=== PATIENT | female | born 1975 | race Caucasian/White ===

== ENCOUNTER → 2018-12-04 | Outpatient (CLI) | payer OTHER ==
[2015-08-06 09:55] VITALS: BP 109/72
[~2018-12-04] MED LIST: CETI10TA22 PO; MONT5TAB6 PO
--- NOTE | 2018-12-04 13:46 | RAD ---
Ultrasound-guided left thyroid biopsy, 12/04/2018: History: Thyroid nodule An outside study demonstrated a solid nodule in the anterior aspect of the upper pole of the left lobe of the gland. Under local anesthesia, aseptic conditions and sonographic guidance, 4 separate 25-gauge aspirates were obtained from this nodule via a medial approach. Hemostasis was obtained. The samples were sent to pathology for evaluation with the pathology report pending. The patient tolerated the procedure well and left the department in good condition.
--- NOTE | 2018-12-05 17:10 | PATHOLOGY ---
Note [facility] Accession Number: [id number] TESTS RESULT FLAG UNITS REF RANGE LAB Clinician Provided Cytology Information No. of containers..01 Other (Miscellaneous) Source: LT THYROID DIAGNOSIS: LT THYROID INADEQUATE, INSUFFICIENT CELLS FOR STUDY. [place] CATEGORY I. UNSATISFACTORY. THIS INTERPRETATION INCLUDES EVALUATION OF A CELL BLOCK. Signed out by: Ellis Hart MD, Pathologist NPI- [id number] Performed by: Martha Lai, Field Manager ([facility]) Gross description: 01 30ML, REDDISH PINK, CLOUDY /LCS FLAG LEGEND: L-Low Normal,H-High Normal,LL-Alert Low,HH-Alert High <-Panic Low,>-Panic High,A-Abnormal,AA-Critical Abnormal Performed at: [address] [place] [address] Naman Webb MD, [facility] [address] [place] [address] Ellis Hart MD, [facility] Comment: A courtesy copy of this report has been sent to [facility] Comment: [phone]. Specimen Comment: Report sent to [facility] Comment: A duplicate report has been generated due to demographic updates. Performed at: [address] [place] [address] [address], [place], [place] [id number] MD Naman Webb MD Phone: [phone]
== END | disposition home or self-care (01) ==
LOC: US 11:43
PROVIDERS: ATTEND Surgery
DX: E04.1 Nontoxic single thyroid nodule (principal); Z88.2 Allergy status to sulfonamides; Z88.1 Allergy status to other antibiotic agents
CPT/HCPCS: 10005; 31625; 76942; 88173; 88305